=== PATIENT | female | born 1990 | race Caucasian/White ===

== ENCOUNTER → 2020-09-15 | Outpatient (CLI) | payer OTHER ==
--- NOTE | 2020-09-17 14:06 | US ---
EXAMINATION TYPE: Transabdominal DATE OF EXAM: 09/15/2020 2:05 PM COMPARISON: NONE CLINICAL HISTORY: Z36 confirm dates. confirm dates EXAM PERFORMED: Transabdominal (TA) EXAM MEASUREMENTS: GESTATIONAL AGE / DATING Physician Established: Not yet established Dates by LMP: (10 weeks/6 days) EDC: 04/07/21 Dates by First Scan: No previous this is first scan Dates by Current Scan for: (12 weeks/0 days) EDC: 03/30/21 MATERNAL ANATOMY Uterus: 14.2 x 7.4 x 9.1cm Right Ovary: 3.4 x 1.7 x 1.6cm Left Ovary: 3.9 x 2.6 x 2.4cm Post CDS / Adnexa: wnl Presence of free fluid: no Presence of corpus luteal cyst: yes, hypoechoic area left ovary = 1.9 x 1.7 x 2.0cm GESTATION / SURVEY CRL: 5.5cm (12 weeks/0 days) Yolk Sac (normal less than 6mm): not seen Heart Rate: 163 bpm Rhythm: Normal IUP: Viable IUP Nuchal Translucency 10-14wks (normal less than 3mm): 0.2cm Date of LMP: 07/01/20 Beta HcG (if available): Not available at this time IMPRESSION: Single intrauterine gestation estimated at 12 weeks 0 days gestation based on the crown-rump length. Cardiac activity measures 163 bpm.
== END | disposition home or self-care (01) ==
LOC: MERGE 13:40 → RADUSWWP 13:47
PROVIDERS: ATTEND Obstetrics & Gynecology
DX: Z36.89 Encounter for other specified antenatal screening (principal); Z3A.12 12 weeks gestation of pregnancy
CPT/HCPCS: 76801; 76813

== ENCOUNTER 2021-03-28 05:54 | Inpatient (IN) | payer OTHER ==
--- NOTE | 2021-03-27 20:13 | P.HPOB ---
History of Present Illness H&P Date: 03/27/21 Chief Complaint: Induction of labor This is a 31 y.o. female, 2, para 1, with an estimated date of confinement of 04/04/2021, estimated gestational age of 39-0/7 weeks, who presents for induction of labor. She is feeling irregular contractions and pressure. course has been uncomplicated. labs: Hepatits B surface antigen-neg RPR-NR Rubella-immune Blood type-O+ Antibody screen-neg Hemoglobin-13.1 Random glucose-65 1 hr. GTT-93 GBS-positive OB Hx: . 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 Works at [employer]. Review of Systems Constitutional: Denies chills, Denies fever Eyes: denies blurred vision, denies pain Ears, nose, mouth and throat: Denies headache, Denies sore throat Cardiovascular: Denies chest pain, Denies shortness of breath Respiratory: Denies cough Gastrointestinal: Reports abdominal pain (Irreg. contractions) Genitourinary: Reports pelvic pain, Reports Musculoskeletal: Reports low back pain Integumentary: Denies pruritus, Denies rash Neurological: Denies numbness, Denies weakness Psychiatric: Denies anxiety, Denies depression Past Medical History Past Medical History: No Reported History History of Any Multi-Drug Resistant Organisms: None Reported Past Surgical History: No Surgical Hx Reported Past Anesthesia/Blood Transfusion Reactions: No Reported Reaction Past Psychological History: No Psychological Hx Reported Smoking Status: Never smoker Past Alcohol Use History: None Reported, Occasional Past Drug Use History: None Reported - Past Family History Father Family Medical History: No Reported History Medications and Allergies Home Medications Medication Instructions Recorded Confirmed Type [id number] Acid 1 cap PO DAILY 08/31/17 09/01/17 History [-U Capsule (formulary)] Allergies Allergy/AdvReac Type Severity Reaction Status Date / Time No Known Allergies Allergy Verified 09/13/20 15:29 Exam Osteopathic Statement: *. No significant issues noted on an osteopathic structural exam other than those noted in the History and Physical/Consult. HEENT: within normal limits Heart: regulra rate and rhythm Lungs: clear to auscultation bilaterally Abdomen: , non-tender Cervix: 1.5-2 cm/70%/-2 heart tones: 140's by doppler Extremities: neg. Scot's. Assessment and Plan (1) 39 weeks gestation of Status: Acute Code(s): Z3A.39 - 39 WEEKS GESTATION OF SNOMED Code(s): 70192539 (2) Group B Streptococcus carrier, +RV culture, currently Status: Acute Code(s): O99.820 - STREPTOCOCCUS B CARRIER STATE COMPLICATING SNOMED Code(s): 4017835949406 Plan: Admission for induction of labor. Antibiotic prophylaxis for GBS. Expectant management. Epidural anesthesia if desired.
[2021-03-28] MEDS ORDERED: TERBUTALINE 1 MG/ML VIAL SQ PRN (06:15)
[2021-03-28] MEDS ORDERED: CARBOPROST TROMETHAMINE 250 MCG/ML 1 ML AMP IM PRN (06:15)
[2021-03-28] MEDS ORDERED: OXYTOCIN 30 UNITS/500 ML NS 30 UNIT in SALINE 1 500ML.BAG IV SCH ×2 (06:15→16:34)
[2021-03-28] MEDS ORDERED: OXYTOCIN 10 UNIT/ML 1 ML VIAL IM PRN (06:15)
[2021-03-28] MEDS ORDERED: AMPICILLIN 2,000 MG in SODIUM CHLORIDE 0.9% 100 ML IVPB STA (06:15)
[2021-03-28] MEDS ORDERED: METHYLERGONOVINE 0.2 MG/ML 1 ML AMP IM PRN (06:15)
[2021-03-28] MEDS ORDERED: LIDOCAINE 0.5% (PF) 5 MG/ML (50 ML SDV) SQ PRN (06:15)
[2021-03-28] MEDS ORDERED: LIDOCAINE 1% (10MG/ML) FOR IV START INTRADERMA PRN (06:15)
[2021-03-28] MEDS: LACTATED RINGERS 1,000 ML IV SCH ×2 (06:21→12:55)
[2021-03-28 06:36] LABS: Basophils % (A) 1 %; Eosinophils # (A) 0.1 k/uL (0-0.7); Eosinophils % (A) 2 %; HGB 12.4 gm/dL (11.4-16.0); Lymphocytes # (A) 1.7 k/uL (1.0-4.8); Lymphocytes % (A) 20 %; MCH 29.4 pg (25.0-35.0); MCHC 33.6 g/dL (31.0-37.0); MCV 87.5 fL (80.0-100.0); Mean Platelet Volume 8.2; Monocytes # (A) 0.5 k/uL (0-1.0); Monocytes % (A) 5 %; Neutrophils % (A) 70 %; Platelet Count 245 k/uL (150-450); RBC 4.23 m/uL (3.80-5.40); RDW 14.4 % (11.5-15.5); WBC 8.6 k/uL (3.8-10.6)
[2021-03-28] MEDS: AMPICILLIN 1,000 MG in SODIUM CHLORIDE 0.9% 50 ML IVPB SCH ×2 (10:35→15:36)
[2021-03-28] MEDS ORDERED: SODIUM CHLORIDE 0.9% 100 ML BAG ONE (12:44)
[2021-03-28] MEDS ORDERED: ROPIVACAINE 5MG/ML 20ML VIAL ONE (12:44)
[2021-03-28] MEDS ORDERED: fentaNYL (PF) 50 MCG/ML 5 ML AMP ONE (12:44)
[2021-03-28] MEDS ORDERED: diphenhydrAMINE 50 MG/ML 1 ML VIAL IVP PRN ×2 (16:34)
[2021-03-28] MEDS ORDERED: LANOLIN CREAM 5 GM TUBE TOPICAL PRN (16:34)
[2021-03-28] MEDS ORDERED: SIMETHICONE 80 MG CHEWABLE PO PRN (16:34)
[2021-03-28] MEDS ORDERED: ACETAMINOPHEN TAB 325 MG TAB PO PRN (16:34)
[2021-03-28] MEDS ORDERED: diphenhydrAMINE 50 MG CAP PO PRN (16:34)
[2021-03-28] MEDS ORDERED: diphenhydrAMINE 25 MG CAP PO PRN (16:34)
[2021-03-28] MEDS ORDERED: BENZOCAINE/MENTHOL SPRAY 1 GM/SPRAY AEROSOL TOPICAL PRN (16:34)
[2021-03-28] MEDS ORDERED: HYDROCORTISONE 2.5% RECTAL CREAM 30 GM TUBE RECTAL PRN (16:34)
[2021-03-28] MEDS ORDERED: ZOLPIDEM 5 MG TAB PO PRN (16:34)
--- NOTE | 2021-03-28 17:12 | P.PROBDLV ---
Vaginal Delivery Note - . Vaginal Delivery Note: The patient progressed to complete dilation after oxytocin induction of labor and artificial rupture of membranes with clear fluid noted. She did receive epidural anesthesia. She did receive several doses of antibiotics due to group B streptococcus positive. Once reaching complete, she began pushing. Infant's head came to a crown. She stated a large crown for several pushes and a tight perineum was palpated. Therefore perineum was anesthetized with 1% lidocaine and midline episiotomy was cut. With one remaining push, the remainder the head delivered followed by the anterior shoulder. Nose and mouth were bulb suctioned. With one remaining push, the remainder the easily delivered and was placed on mother's abdomen. Cord was clamped and cut and was taken to warmer for evaluation. A viable male was noted with scores of 8 at 1 minute and 9 at 5 minutes and weight of 9 lbs. 1 oz. Placenta delivered shortly thereafter, intact, with a three-vessel cord. Uterus contracted fairly well after oxytocin was given and uterine massage was carried out. Inspection of the perineum revealed a midline episiotomy with no further extension. This area was anesthetized with 1% lidocaine and then sutured with 30 and 2-0 Vicryl suture in the usual multilayer fashion. There was still a small amount of oozing and therefore bladder was drained with a catheter and then bimanual exam revealed some clot within the endometrium and a small amount of membranes that were manually removed. After this uterus was firm and no active bleeding was noted. Estimated blood loss is approximately 200 mL's.
[2021-03-28] MEDS: SENNOSIDES-DOCUSATE SODIUM 1 EACH TAB PO SCH (20:25)
[2021-03-29] MEDS: IBUPROFEN 600 MG TAB PO PRN ×2 (00:55→08:00)
[2021-03-29 07:10] LABS: Basophils % (A) 0 %; Eosinophils # (A) 0.2 k/uL (0-0.7); Eosinophils % (A) 2 %; HGB 10.9 gm/dL (11.4-16.0); Lymphocytes # (A) 1.9 k/uL (1.0-4.8); Lymphocytes % (A) 19 %; MCH 29.2 pg (25.0-35.0); MCHC 32.1 g/dL (31.0-37.0); MCV 90.9 fL (80.0-100.0); Monocytes # (A) 0.6 k/uL (0-1.0); Monocytes % (A) 6 %; Neutrophils # (A) 7.4 k/uL (1.3-7.7); Neutrophils % (A) 72 %; Platelet Count 206 k/uL (150-450); RBC 3.74 m/uL (3.80-5.40); WBC 10.2 k/uL (3.8-10.6)
[2021-03-29] MEDS: SENNOSIDES-DOCUSATE SODIUM 1 EACH TAB PO SCH (08:01)
--- NOTE | 2021-03-29 08:49 | P.DS ---
Providers Date of admission: 03/28/21 05:54 Expected date of discharge: 03/29/21 Attending physician: Breana Crocker Primary care physician: Stated None - Discharge Diagnosis(es) (1) 39 weeks gestation of Current Visit: No Status: Acute (2) Group B Streptococcus carrier, +RV culture, currently Current Visit: No Status: Acute Hospital Course: This is 31-year-old female 2 para 1 at 39-0/7 weeks, who presented to labor and delivery for induction of labor. She underwent oxytocin induction of labor and delivered vaginally a viable female infant with scores of 8 at 1 minute and 9 at 5 minutes and weight of 9 lbs. 1 oz. She did receive antibiotic prophylaxis for group B strep while in labor. Her course has been uncomplicated. Pain is well-controlled. Lochia is decreasing. She is bottle feeding. Vital signs are stable. Abdomen is soft with fundus firm and nontender. Extremities show negative Homans. Impression is status post vaginal delivery day #1. Plan is to discharge home later today. Routine instructions are given. She is advised to call the office if she has any further questions or concerns prior to her appointment time. Procedures: oxytocin induction of labor Spontaneous vaginal delivery of a viable female infant on 03/28/2021 Patient Condition at Discharge: Stable Plan - Discharge Summary New Discharge Prescriptions: New Ibuprofen [Motrin] 600 mg PO Q6HR PRN #60 tab PRN Reason: Mild Pain (Scale 1 To 3) No Action Ihx-[id number]-Uhclz Acid [-U Capsule (formulary)] 1 cap PO DAILY Discharge Medication List [id number] Acid [-U Capsule (formulary)] 1 cap PO DAILY 08/31/17 [History] Ibuprofen [Motrin] 600 mg PO Q6HR PRN #60 tab 03/29/21 [Rx] Follow up Appointment(s)/Referral(s): Breana Crocker DO [Doctor of Osteopathic Medicine] - 05/08/21 2:00 pm Activity/Diet/Wound Care/Special Instructions: Instructions 1. Do not begin any exercise program for 3 weeks. 2. Do not resume sexual relations for 3 weeks or longer if uncomfortable. 3. You may take tub baths or showers at any time. 4. You may use tampons if desired after 3 weeks. 5. Keep the area of episiotomy (stitches) clean and dry. 6. If you are not nursing, wear a good fitting, supportive bra during the day and limit fluid intake for at least 1 week to prevent breast engorgement. 7. Call the office, [phone], within the next week to make appointment for your 6 week checkup if it has not already been made. 8. Report any of the following occurrences to the doctor promptly: a. Heavy, excessive bleeding b. Chills, fever c. Burning or frequency of urination d. Pain or redness and breasts if nursing e. Increasing pain or swelling in episiotomy (stitches). In addition to the above instructions, the following additional should be followed: 1. No heavy lifting or straining (exercising) until after 6 week checkup. 2. Keep abdominal incision clean and dry: You may wear a dressing if more comfortable. 3. Make office appointment for 10 days after going home or as instructed by her doctor. Discharge Disposition: HOME SELF-CARE
[2021-03-29 16:20] VITALS: BP 118/65; PULSE 80; RESP 16; TEMP 98.2
== END 2021-03-29 17:10 | disposition home or self-care (01) | DRG 807 ==
LOC: 4FBP 05:54
PROVIDERS: ADMIT Obstetrics & Gynecology; ATTEND Obstetrics & Gynecology
PROC: 10E0XZZ Delivery of Products of Conception, External Approach (ICD-10-PCS; principal; 2021-03-28)
PROC: 10D17Z9 Manual Extraction of Products of Conception, Retained, Via Natural or Artificial Opening (ICD-10-PCS; 2021-03-28)
PROC: 0W8NXZZ Division of Female Perineum, External Approach (ICD-10-PCS; 2021-03-28)
PROC: 3E033VJ Introduction of Other Hormone into Peripheral Vein, Percutaneous Approach (ICD-10-PCS; 2021-03-28)
DX: O99.824 Streptococcus B carrier state complicating childbirth (principal); Z37.0 Single live birth; Z3A.39 39 weeks gestation of pregnancy
CPT/HCPCS: 85025; 86850; 86900; 86901